=== PATIENT | female | born 1995 | race Two or more races ===

== ENCOUNTER → 2017-07-24 13:48 | Outpatient (CLI) | payer OTHER ==
[~2017-07-24] VITALS: Ht 152.4 cm; Wt 63.5 kg
== END | disposition home or self-care (01) ==
LOC: PPHC 13:48
DX: N92.5 Other specified irregular menstruation (principal); R10.2 Pelvic and perineal pain; Z32.02 Encounter for pregnancy test, result negative

== ENCOUNTER 2017-07-25 11:27 | Outpatient (CLI) | payer OTHER | END 2017-07-25 11:29 | disposition home or self-care (01) | LOC: SONOGRAMA 11:27 | DX: N92.6 Irregular menstruation, unspecified (principal); R10.2 Pelvic and perineal pain; N91.2 Amenorrhea, unspecified ==

== ENCOUNTER → 2017-08-24 | Outpatient (CLI) | payer OTHER ==
[~2017-08-24] VITALS: Ht 152.4 cm; Wt 56.7 kg
== END | disposition home or self-care (01) ==
LOC: PPHC 13:56
DX: Z01.89 Encounter for other specified special examinations (principal)

== ENCOUNTER 2020-04-05 11:27 | Outpatient (CLI) | payer OTHER | END 2020-04-05 11:34 | disposition home or self-care (01) | LOC: RX STUDY 11:27 | PROVIDERS: ATTEND Obstetrics & Gynecology | DX: N97.8 Female infertility of other origin (principal) ==

== ENCOUNTER → 2025-03-27 12:09 | Outpatient (CLI) | payer OTHER | END | disposition home or self-care (01) | LOC: PRENATAL 12:09 | PROVIDERS: ATTEND Obstetrics & Gynecology Maternal & Fetal Medicine | DX: O44.00 Complete placenta previa NOS or without hemorrhage, unspecified trimester (principal); Z3A.19 19 weeks gestation of pregnancy ==

== ENCOUNTER 2025-07-01 14:55 | Outpatient (CLI) | payer OTHER | END 2025-07-01 14:56 | disposition home or self-care (01) | LOC: PRENATAL 14:55 | PROVIDERS: ATTEND Obstetrics & Gynecology Maternal & Fetal Medicine | DX: O26.843 Uterine size-date discrepancy, third trimester (principal); O36.8130 Decreased fetal movements, third trimester, not applicable or unspecified; Z3A.34 34 weeks gestation of pregnancy ==